=== PATIENT | male | born 1965 | race Caucasian/White ===

== ENCOUNTER → 2016-05-17 | Outpatient (CLI) | payer OTHER ==
[~2016-05-17] VITALS: Ht 180.3 cm; Wt 97.5 kg
[~2016-05-17] MED LIST: ROSUVASTATIN CA20 MG PO; VENTOLIN HFA 1818 GM INH; WELLBUTRIN XL300 MG PO
--- NOTE | ~2016-05-17 | P ---
[facility] [place] [address] PROCEDURE REPORT Name: HARRY JAY Room #: REG [facility]#: [id number] Admission: 05/17/16 Attend Phys: Soren Whittaker DO Discharge: Date of : 65 Report #: [id number] THIS REPORT FOR: //name// CC: Ramiro Sequeira RN DATE OF SERVICE: 05/17/2016 DESCRIPTION OF PROCEDURE: L4-L5 right transforaminal epidural steroid injection under fluoroscopic guidance. This is the first procedure of the first series, the patient is undergoing. After obtaining written consent, the patient was taken back to the fluoroscopy suite, placed in a prone position with pillow under the abdomen to decrease lumbar lordosis. Skin overlying the lumbosacral area was then prepped and draped in aseptic fashion. The L4-L5 vertebrae were identified by fluoroscopy. The neural foramen (6 o'clock position of the pedicle) was then identified utilizing an oblique fluoroscopic view. The skin and subcutaneous tissue overlying the target site of injection was then anesthetized with 3 mL of 1% lidocaine. Using a "tunnel view," a 22-gauge 4-1/2-inch Tuohy needle with a bent tip was advanced towards the right epidural space under fluoroscopic guidance. The final position of the needle was identified using AP and lateral views. There were no paresthesias with final positioning of the needle. After negative aspiration for heme or cerebrospinal fluid, a total of 0.4 mL of Omnipaque was injected under live AP fluoroscopy to demonstrated absence of vascular uptake. AP and lateral imaging demonstrated an excellent neurogram and epidurogram. Pain provocation by the injected contrast material was negative. After negative aspiration for heme or cerebrospinal fluid, 3 mL of a solution containing 2 mL 40 mg per mL, 80 mg total triamcinolone, 1 mL of lidocaine 1% was injected in increments. The needle was then retracted approximately alf and the needle tract flushed with 1 mL of 1% lidocaine. A sterile bandage placed over the injection site. There were no new motor deficits present in the lower extremities following the procedure. The heart rate, pulse oximetry and blood pressure were continuously monitored after the procedure. There were no apparent complications. The patient tolerated the procedure well and was carefully escorted to the recovery room in stable condition. The VAS was 6/10 before the procedure and 2/10, [address] [address] PROCEDURE REPORT Name: HARRY JAY Room #: REG CL Kenn#: [id number] Admission: 05/17/16 Attend Phys: Soren Whittaker DO Discharge: Date of : 65 Report #: [id number] after the procedure. After meeting discharge criteria, the patient was discharged home. By: 1208 1310 Soren Whittaker, DO /nt
--- NOTE | ~2016-05-17 | HPC ---
[facility] [place] [address] PAIN MANAGEMENT CONSULTATION Name: HARRY JAY [id number] Admission: 05/17/16 Attend Phys: Soren Whittaker DO Discharge: Date of : 65 Report #: [id number] THIS REPORT FOR: //name// CC: Ramiro Sequeira RN DATE OF SERVICE: 05/17/2016 CHIEF COMPLAINT: Low back pain, right lower extremity pain with paresthesias. HISTORY OF PRESENT ILLNESS: As you know, the patient is a very pleasant 51-year-old male who began experiencing low back pain, right lower extremity pain with paresthesias that began 02/28/2016. As you are aware, the patient underwent a laminectomy in 1987 at the L5-S1 level with complete resolution of his "sciatic pain." The patient indicates that his pain began 02/28/2016, no inciting injury or trauma, progressively worsened. He states his pain is periodic and intermittent, describes the pain as burning, shooting, cramping, pulling and throbbing. He states he cannot run or walk any long distances. He has sought chiropractic manipulation, acupuncture therapy and has been in physical therapy for nearly a month. The combination of this options for treatment have only led to a transient improvement in symptoms. He sought evaluation through his neurosurgery team who referred the patient to our clinic to trial epidural injections to determine if more conservative treatments might be beneficial in treating his symptoms. He places current pain score 5-6/10, daily average of 5-6/10. Worst pain has been is 8/10. Standing and running and walking exacerbate symptoms. Sitting and repositioning appears to improve pain. He has been referred to our service to discuss treatment options for lumbar radiculopathy. PAST MEDICAL HISTORY: 1. Coronary artery disease. 2. Dyslipidemia. 3. Reactive airway disease. PAST SURGICAL HISTORY: 1. Laminectomy in 1987. 2. Repair of a femur fracture in 1978. SOCIAL HISTORY: The patient denies tobacco, alcohol or IV or illicit drug use. 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 He is working, not receiving workmen's compensation. He is not in litigation in regards to his pain. He is unaccompanied at today's visit. REVIEW OF SYSTEMS: Positive only for low back pain, right lower extremity pain and paresthesias, dyslipidemia. All other review of systems is negative per [facility] [address] [place] [address] PAIN MANAGEMENT CONSULTATION Name: HARRY JAY Room #: [facility] [id number] Admission: 05/17/16 Attend Phys: Soren Whittaker DO Discharge: Date of : 65 Report #: [id number] 12-point review of systems other than those listed in history of present illness. Pain impact score 37/70 indicating moderate interference of daily activities secondary to pain. ALLERGIES: PENICILLIN. CURRENT MEDICATIONS: 20 mg per day, albuterol 2 puffs q. 4 hours p.r.n., bupropion XL 300 mg once a day. IMAGING DATA: MRI lumbar spine obtained on 05/03/2016 shows right L4-L5 paracentral disk protrusion contacting the descending nerves in the right lateral recess, lateral recess stenosis is compounded by osteophyte formation within the facet joint. Protrusion measures approximately 1.1 cm x 0.4 cm x 0.9 cm. PHYSICAL EXAMINATION: VITAL SIGNS: Blood pressure 119/82, pulse 78, respiratory rate 16, unlabored. The patient is 100% on room air. Height 5 feet 11 inches tall, weight 215 pounds, BMI calculated at 30. GENERAL: Well-developed, well-nourished, well-hydrated 51-year-old male appearing his stated age, placing current pain score 6/10. HEENT: Normocephalic, atraumatic. Pupils equal, round, reactive to light. Extraocular muscles are intact. Sclerae nonicteric without injection. NEUROLOGIC: Cranial nerves 2-12 grossly intact. Speech is fluent. The patient deemed an excellent historian. LUNGS: Clear. No wheeze, rhonchi or rales. CARDIOVASCULAR: Regular. No appreciable gallop or rub. ABDOMEN: Soft, nontender, nondistended, normoactive bowel sounds. EXTREMITIES: Show no clubbing, no cyanosis, no edema. MUSCULOSKELETAL: Lower extremity strength appears equal and symmetrical 5/5. Some giveaway strength noted on the right when compared to left, this is noted with hip flexion, knee extension. Ankle clonus negative. Babinski is negative. Intact to light touch from L1 through S2 dermatomes. Deep tendon reflexes are symmetrical at patella and Achilles. Seated straight leg raising negative. Supine straight leg raising positive on the right. Deb test is negative. Modified gaenslen is positive only for some axial back discomfort, no radiation of symptoms. Gait is slightly antalgic favoring right lower extremity over left. ASSESSMENT: 1. Symptomatic lumbar radiculopathy. 2. Displacement of lumbar intervertebral disk with radiculopathy. 3. Lumbosacral spondylosis with radiculopathy. 4. Chronic intractable pain. [facility] [address] [place] [address] PAIN MANAGEMENT CONSULTATION Name: HARRY JAY Room #: REG [facility]#: [id number] Admission: 05/17/16 Attend Phys: Soren Whittaker DO Discharge: Date of : 65 Report #: [id number] PLAN: 1. The patient has been referred to our service by his neurosurgery team to be evaluated for lumbar radiculopathy. The patient, as you are aware, has a right L4-L5 paracentral disk protrusion contacting the right nerve roots at L5 and S1 as they passed through the lateral recess. We discussed with the patient the findings on the MRI and how they correlate to his current symptoms. We discussed treatment options, which would include physical therapy, stretching exercise, core strengthening for which the patient has been involved for the past month. We discussed the chiropractic and acupuncture approach, which has been transiently helpful with the patient. We have discussed medication management with addition of a neuropathic pain medication and consistent nonsteroidal anti-inflammatory. We discussed transforaminal epidural injections under fluoroscopic guidance to address the radicular symptoms. We discussed spinal cord stimulator and surgical options. After reviewing risks and benefits of all proposed treatment options, the patient chose to begin with transforaminal epidural injections. The patient was advised the risks and benefits of transforaminal epidural injection. These risks include but are not necessarily limited to bleeding, bruising, infection, worsening pain, no relief of pain, also risk of temporary or permanent muscle weakness, temporary or permanent nerve damage, possible paralysis and . The patient states he understood and wished to proceed. 2. No medication changes were made at today's visit. The patient to continue current medical therapy as previously prescribed. 3. The patient to return to our clinic in 2 weeks. At that time, review efficacy of today's epidural injection and determine if a repeat injection might be warranted. 4. We wish to thank nurse practitioner, Lizbet Sequeira for the referral of the patient to our clinic. We will keep you apprised of the patient's response to treatment as we address his lumbar radiculopathy. Again, we wish to thank you for the opportunity to participate in his care. 1. By: 1208 1304 Soren Whittaker DO /nt
== END | disposition home or self-care (01) ==
LOC: PAIN 07:06
DX: M51.16 Intervertebral disc disorders with radiculopathy, lumbar region (principal); M47.27 Other spondylosis with radiculopathy, lumbosacral region; G89.29 Other chronic pain; J45.909 Unspecified asthma, uncomplicated

== ENCOUNTER → 2016-06-01 | Outpatient (CLI) | payer OTHER ==
[~2016-06-01] VITALS: Ht 180.3 cm; Wt 95.8 kg
[~2016-06-01] MED LIST changes: +IBUPROFEN 200200 M1 PO
--- NOTE | ~2016-06-01 | HPC ---
[facility] [address] [place] [address] PAIN MANAGEMENT CONSULTATION Name: HARRY JAY Room #: REG [facility] M..#: [id number] Admission: 06/01/16 Attend Phys: Soren Whittaker DO Discharge: Date of : 65 Report #: [id number] THIS REPORT FOR: //name// CC: LIZBETH Sequeira RN DATE OF SERVICE: 06/01/2016 DATE OF SERVICE: 06/01/2016 CHIEF COMPLAINT: Low back pain, right lower extremity pain with paresthesias. HISTORY OF PRESENT ILLNESS: As you know, the patient is a very pleasant 51-year-old male, who returns today in followup visit indicating some improvement in symptoms with the requested transforaminal epidural injections provided on the right side. Unfortunately, he continues to experience pain for which the patient places pain score 6/10. States his pain is brief momentary transient periodic, aching, burning, shooting, sharp, stabbing, pulling and tender, exacerbated with sitting, activities and walking, improves with medications and lying down. He has returned today in followup visit, discussed treatment options. He is not confident that he received much in the way of improvement with the injections were requested. ALLERGIES: PENICILLIN. CURRENT MEDICATIONS: Albuterol 2 puffs q. 4 hours, bupropion XL 300 mg once a day. SOCIAL HISTORY: The patient denies tobacco, alcohol or IV or illicit drug use. 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 He is working, not receiving workmen's compensation, unaccompanied today. IMAGING: No new imaging available. PHYSICAL EXAMINATION: VITAL SIGNS: Blood pressure 155/68, pulse 70, respiratory rate 20, unlabored. The patient 98% on room air, height 5 feet 3 inches tall, weight 188.4 pounds, BMI calculated 33.4. GENERAL: Well-developed, well-nourished, well-hydrated 51-year-old male appearing stated age, placing current pain score 6/10. HEENT: Normocephalic, atraumatic. Pupils equal, round, reactive to light. Extraocular muscles are intact. EXTREMITIES: Show no clubbing, no cyanosis, no edema. [facility] [address] [place] [address] PAIN MANAGEMENT CONSULTATION Name: HARRY JAY Room #: REG [facility].#: [id number] Admission: 06/01/16 Attend Phys: Soren Whittaker DO Discharge: Date of : 65 Report #: [id number] MUSCULOSKELETAL: Intact to light touch from L1 through S2 dermatomes. Seated straight leg raising negative. Supine straight leg raising positive right. Deb test negative. ASSESSMENT: 1. Symptomatic lumbar radiculopathy. 2. Displacement of lumbar intervertebral disk with radiculopathy. 3. Lumbosacral spondylosis with radiculopathy. 4. Lumbar degeneration. 5. Chronic intractable pain. PLAN: 1. The patient returns today in followup visit indicating no significant improvement with the transforaminal injections requested by Neurosurgery. The patient reports only transient improvement in symptoms lasting for no more than 24 hours. He returns today in followup visit where we have discussed at length the possibility of repeating the injections versus medication management. The patient wishes at this time to begin medication management. He does wish to return to see Dr. Zapata to discuss his options from a surgical standpoint. 2. We will start the patient on Gralise starting at 300 mg at night. We have provided the specific medication given its lack of major side effects, but improvement in efficacy. The patient will begin at 300 mg 2 hours before bedtime, then titrate as directed in the titration pack. We did not provide immediate release gabapentin in this patient's case, given the level of acuity from a mentation standpoint, the patient has to have on a daily basis to perform his job. We are hopeful he will see improvement with Gralise and coverage will be forthcoming. We will start the Gralise, contact our clinic once he reaches an efficacious level, so that we can then provide a full prescription. 3. The patient is going to return to see his neurosurgery team to report about the transforaminal epidural injections requested. Unfortunately, I do not see much in the way of improvement and would not recommend continuation of this treatment, given the lack of efficacy. We will have the patient return to see Neurosurgery and they will let us know if they wish to move forward with any other treatment options other than medication management or possibility of a spinal cord stimulator. 4. The patient will contact our clinic once he has reached an efficacious level of Gralise and will provide a full prescription for him to his outpatient pharmacy. <ELECTRONICALLY SIGNED> By: Soren Whittaker DO 06/08/16 [id number] Soren Whittaker DO /nt
[2016-06-01 10:46] VITALS: BP 114/78
== END | disposition home or self-care (01) ==
LOC: PAIN 07:49
DX: M54.16 Radiculopathy, lumbar region (principal); M51.26 Other intervertebral disc displacement, lumbar region; M47.27 Other spondylosis with radiculopathy, lumbosacral region; M51.36 Other intervertebral disc degeneration, lumbar region; G89.29 Other chronic pain

== ENCOUNTER → 2016-06-15 | Outpatient (CLI) | payer OTHER ==
[~2016-06-15] VITALS: Ht 177.8 cm; Wt 94.7 kg
--- NOTE | ~2016-06-15 | HPC ---
[facility] [address] [place] [address] PAIN MANAGEMENT CONSULTATION Name: HARRY JAY Room #: REG [facility]..#: [id number] Admission: 06/15/16 Attend Phys: Soren Whittaker DO Discharge: Date of : 65 Report #: [id number] THIS REPORT FOR: //name// CC: Ramiro Sequeira RN DATE OF SERVICE: 06/15/2016 REFERRING PHYSICIANS: Santi Zapata MD; Ramiro Crowe MD; and Lizbet Sequeira RN CHIEF COMPLAINT: Low back pain, right lower extremity pain with paresthesias. HISTORY OF PRESENT ILLNESS: As you know, the patient is a very pleasant 51-year-old male who returns today in followup visit having trialed Gralise therapy, did not like the sensation he received at the 600 mg dose and subsequently discontinued its use. He is noticing excellent benefit with the previous epidural injection, he is now placing pain score 1/10. He indicates about a 70-80% improvement in symptoms overall. He returns today in followup visit requesting a repeat epidural injection in hopes of building on success of previous intervention. He does not wish to remain on medications further. He denies new injury, new trauma that may have led to symptoms. He has actually been back to running a couple of times and more activity, his pain remains fairly well controlled. ALLERGIES: PENICILLIN. CURRENT MEDICATIONS: Albuterol and bupropion. SOCIAL HISTORY: The patient denies tobacco, alcohol, IV or illicit drug use. 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 PHYSICAL EXAMINATION: VITAL SIGNS: Blood pressure 127/81, pulse 67, respiratory rate 16 and unlabored, the patient is 100% on room air, height 5 feet 10 inches tall, weight 208 pounds, and BMI calculated . GENERAL: Well-developed, well-nourished, well-hydrated 51-year-old male, appearing stated age, placing current pain score 1/10. HEENT: Normocephalic and atraumatic. Pupils are equal, round, and reactive to light. EXTREMITIES: Show no clubbing, no cyanosis, and no edema. MUSCULOSKELETAL: Seated straight leg raising negative. Supine straight leg [facility] [address] [place] [address] PAIN MANAGEMENT CONSULTATION Name: HARRY JAY Room #: REG [facility].#: [id number] Admission: 06/15/16 Attend Phys: Soren Whittaker DO Discharge: Date of : 65 Report #: [id number] raising positive on the right. Fabere's test negative. Modified Gaenslen's positive for axial low back pain. Muscle bulk and tone equal and symmetrical in lower extremities. ASSESSMENT: 1. Symptomatic lumbar radiculopathy. 2. Displacement of lumbar intervertebral disk with radiculopathy. 3. Lumbosacral spondylosis with radiculopathy. 4. Lumbar degeneration. 5. Chronic intractable pain. PLAN: 1. The patient has returned today in followup visit with an 80% improvement in overall pain with the epidural injection provided 2 visits ago. We did initiate medication management the patient at last visit in the form of Gralise, we gave him samples of the medication at 300 mg dose, he noticed sensation changes. At 600 mg, he began to experience dysphoric effects and subsequently discontinued the medication. He returns today in followup visit requesting an epidural injection under fluoroscopic guidance in hopes of improving pain further. He has been advised risks and benefits of the procedure, states he understood and wished to proceed. 2. No medication changes were made at today's visit. We recommend he stay off the Gralise given the dysphoric effects he had with the medication. We will discuss medication management if necessary in the future. 3. The patient will return to our clinic on an as needed basis for possible repeat epidural injection. PROCEDURE NOTE DESCRIPTION OF PROCEDURE: L4-L5 right paramedian epidural steroid injection under fluoroscopic guidance. After obtaining written consent, the patient was taken back to fluoroscopy suite, placed in prone position with pillow under abdomen to decrease lumbar lordosis. Skin overlying the lumbosacral area prepped and draped in aseptic fashion. The L4-L5 vertebral interspace identified by AP fluoroscopy. Skin and subcutaneous tissue overlying the target site of injection was anesthetized with 3 mL of 1% lidocaine. A 20-gauge 3-1/2 inch Tuohy needle advanced under fluoroscopic guidance towards the epidural space using a right paramedian approach. Epidural space identified using loss of resistance to air technique. After negative aspiration for heme or cerebrospinal fluid, 1 mL of Omnipaque was injected. Lumbar epidurogram was confirmed using both AP and lateral fluoroscopy. After negative aspiration for heme or cerebrospinal fluid, 5 mL of a solution containing 2 mL 40 mg per mL, 80 mg total triamcinolone, 3 mL lidocaine 1% injected slowly. Needle retracted [address] [address] PAIN MANAGEMENT CONSULTATION Name: HARRY JAY Room #: REG [facility]#: [id number] Admission: 06/15/16 Attend Phys: Soren Whittaker DO Discharge: Date of : 65 Report #: [id number] custodial, needle tract flushed with 3 mL 1% lidocaine. Needle then removed. Sterile bandage placed over injection site. No new motor deficits present in the lower extremity following the procedure. The patient tolerated procedure well, carefully escorted to the recovery room in stable condition. No apparent complications. After meeting discharge criteria, the patient discharged home. By: 1154 1424 Soren Whittaker DO /nt
[2016-06-15 10:35] VITALS: BP 127/81
== END ==
LOC: PAIN 06:54
DX: M47.27 Other spondylosis with radiculopathy, lumbosacral region (principal); M51.16 Intervertebral disc disorders with radiculopathy, lumbar region; G89.29 Other chronic pain